=== PATIENT | male | born 1960 | race Caucasian/White ===

== ENCOUNTER 2017-06-25 11:16 | Day surgery (SDC) | payer OTHER ==
[~2017-06-25 11:16] MED LIST: CEFAZOLIN 1 GM INJ; CEFAZOLIN 1 GM/50 ML (PMX) 50 ML IVPB
[2017-06-25] MEDS ORDERED: PROPOFOL 20 ML ×3 (12:30→13:36)
[2017-06-25] MEDS ORDERED: ONDANSETRON 4 MG INJ (12:31)
[2017-06-25] MEDS ORDERED: METOCLOPRAMIDE 10 MG INJ (12:31)
[2017-06-25] MEDS ORDERED: MIDAZOLAM 1 MG/ML 2 ML INJ (12:31)
[2017-06-25] MEDS ORDERED: FENTAnyl 50 MCG/ML VIAL ×2 (12:38→12:54)
[2017-06-25] MEDS ORDERED: SUCCINYLCHOLINE CHLORIDE 100 MG/5 ML SYG IV (13:13)
[2017-06-25] MEDS ORDERED: EPHEDrine SULFATE 50 MG/5 ML SYG ×2 (13:13→13:55)
[2017-06-25] MEDS ORDERED: HYDROCODONE/APAP (5/325) TAB PO (14:00)
[2017-06-25] MEDS: EPHEDrine SULFATE 50 MG/5 ML SYG IV (14:15)
[2017-06-25] MEDS ORDERED: HYDROmorphONE (0.2 MG/ML) 10ML SYG IV ×3 (14:21→14:30)
[2017-06-25] MEDS ORDERED: ONDANSETRON 4 MG INJ IV (14:30)
[2017-06-25] MEDS: HYDROmorphONE (0.2 MG/ML) 10ML SYG IV (14:49)
== END 2017-06-25 15:50 | disposition home or self-care (01) ==
LOC: SDS 11:16
DX: N20.1 Calculus of ureter (principal); I10 Essential (primary) hypertension
CPT/HCPCS: 52356; 74430; 87086; 88300